=== PATIENT | female | born 1950 | race Caucasian/White ===

== ENCOUNTER 2020-12-13 06:53 | Day surgery (SDC) | payer MEDICARE, BC, OTHER, SELFPAY ==
[2020-12-13 07:08] VITALS: BP 140/95; PULSE 90; RESP 20; TEMP 36.5; O2SAT 96
[2020-12-13] MEDS: Tropicam./Phenyleph. (1/2.5%) 5 ML BTL OD ×3 (07:26→07:38)
--- NOTE | 2020-12-13 07:28 | ANES.PREOP_ITS ---
Anesthesia Assessment and Plan Anesthesia History Personal History: No History of Anesthesia Complications Family History: No Family History of Anesthesia Complications Exercise Tolerance Exercise Tolerance: Metabolic Equivalents>4 Pertinent Negatives Pertinent Negatives: No Symptoms of GERD ( O meds. Has hiatal hernia. Sleeps w 3 pillowsa) Cardiac & Pulmonary Exam Cardiac Exam: Normal S1/S2 Heart Sounds Pulmonary Exam: Clear Bilateral Breath Sounds Airway Exam Known Difficult Airway: No Mallampati Class: 2 Mouth Opening: Normal (> 3cm) Thyromental Distance: Greater than 3 cm Neck Range of Motion: Full ROM Neck Circumference: Normal Teeth Condition: Normal Dentition ASA Classification ASA Score: ASA 2 ASA Emergency: No NPO Status NPO Status: NPO Clears >2 hours, Solids >8 hours Status Status: Not Per Patient Anesthesia Plan Anesthesia Technique: MAC Anesthesia Airway Planned: Natural Airway Monitors Used: Standard Monitors General Info Date of Service This is a Shared Provider Document. All providers who document on this will be required to sign document once completed. Please Communicate with Team Date Performed: 12/13/20 Height: 5 ft 5 in Weight: 90.2 kg Body Mass Index (BMI): 33.0 Surgical Procedure: Operation Date: 12/13/20 08:40 Proposed Procedures Side Surgeon p Cataract Extraction with IOL Implant Right Mike Rendon MD Vital Signs and Lab Results Vital Signs Most Recent Vital Signs in EMR: Most Recent Vital Signs Temp Pulse Resp BP Pulse Ox 36.5 C 90 20 140/95 H 96 12/13/20 07:08 12/13/20 07:08 12/13/20 07:08 12/13/20 07:08 12/13/20 07:08 Point of Care Results Nursing Point of Care Results: No Data to Display Lab Results Blood Type / Crossmatch: No Data to Display Complete Blood Count: No Data to Display Complete Metabolic Panel: No Data to Display Liver Function Panel: No Data to Display Coagulation Panel: No Data to Display Cardiac Panel: No Data to Display Arterial Blood Gas: No Data to Display Venous Blood Gas: No Data to Display Pancreas Panel: No Data to Display Thyroid Panel: No Data to Display Infectious Disease: No Data to Display Blood Cultures: Blood Culture Toxicology Panel: No Data to Display Panel: No Data to Display PFSH Medical History Sherry's thyroiditis Left anterior fascicular block Right bundle branch block Surgical History H/O parathyroidectomy History of appendectomy History of surgery vaginal sling Social History Smoking/Tobacco Use Status: Never Smoking risk assessment performed?: Yes Alcohol Intake: never Substance use type: does not use Do you feel safe at home: Yes Do you feel safe in your relationship?: Yes Meds Allergies and Home Medications Allergies Allergy/AdvReac Type Severity Reaction Status Date / Time levofloxacin [From Levaquin] AdvReac Intermediate Achilles Verified 12/13/20 07:14 pain Current Visit Medication Generic Name Dose Route Start Last Admin Trade Name Freq PRN Reason Stop Dose Admin Acetaminophen 1,000 mg 12/13/20 06:00 Acetaminophen 500 Mg Tab PO Q4H PRN PRN Miscellaneous Medication 0 ml 12/13/20 06:00 Prednisolone 1%, Moxifloxacin 0.5%, Nepafenac 0.1% 5ml Btl OD DIRECTED [facility] Miscellaneous Medication 0 ml 12/13/20 06:00 12/13/20 07:38 Tropicam./Phenyleph. (1/2.5%) 5 Ml Btl OD 1 drp DIRECTED [facility] Administration Tetracaine HCl 0 ml 12/13/20 06:00 Tetracaine 0.5% 4 Ml Btl OD DIRECTED [facility] Home Medication Medication Instructions Recorded Lactobacillus rhamnosus GG 5 cap PO DAILY 12/10/20 ascorbic acid (vitamin C) [Vitamin 500 mg PO DAILY 12/10/20 C] biotin 1,000 mcg PO DAILY 12/10/20 cholecalciferol (vitamin D3) 1,000 mcg PO DAILY 12/10/20 [Vitamin D3] ccjt-wroid-dpi-hyal-ben borate 1 tab PO DAILY 12/13/20 [Move Free Plus [facility]]
[2020-12-13 07:49] VITALS: BMI 33.0
[2020-12-13] MEDS: Balanced Salt Soln.-PLUS 500 ML BAG (08:16)
[2020-12-13] MEDS: Tetracaine 0.5% 4 ML BTL OD (08:16)
[2020-12-13] MEDS: Duovisc Viscoelastic System EACH 1 EACH (08:17)
[2020-12-13] MEDS: Lidocaine 2% Jelly 6 ML SYR (08:18)
[2020-12-13] MEDS: Lidocaine 1% Pres-Free 5 ML VIAL (08:18)
[2020-12-13] MEDS: Povidone-Iodine Ophth 30 ML BTL (08:20)
[2020-12-13 08:30] VITALS: BP 136/89; PULSE 86; RESP 16; TEMP 36.2; O2SAT 93
--- NOTE | 2020-12-13 08:30 | W.PM.DSUDISC ---
Discharge Plan Disposition Patient Disposition: HOME Condition: Good Discharge Details Attending Provider: Mike Rendon Primary Care Provider: Zeina Jarrett Home Meds and New Rx's Prescriptions: No Action ascorbic acid (vitamin C) [Vitamin C] 500 mg Tablet 500 mg PO DAILY RF: 0 Lactobacillus rhamnosus GG 10 billion cell Capsule 5 cap PO DAILY RF: 0 cholecalciferol (vitamin D3) [Vitamin D3] 25 mcg (1,000 unit) Capsule 1,000 mcg PO DAILY RF: 0 biotin 1,000 mcg Tablet,Chewable 1,000 mcg PO DAILY RF: 0 Move Free Plus MSM 500 mg-66.7 mg- 500 mg-1.1 mg Tablet 1 tab PO DAILY RF: 0 Discharge Instructions Stand Alone Forms: Post-op Topical Cataract, Shelbie Buitrago (DSU) Discharge Orders Discharge Orders: Discharge Order (Routine); Ordered 12/13/20 Ordered By: Mike Rendon DS: Diagnosis Discharge Diagnosis (1) Nuclear sclerotic cataract of right eye: Status: Resolved (2) Cortical cataract of right eye: Status: Resolved
--- NOTE | 2020-12-13 08:31 | ROE_ITS ---
Date of service: 12/13/20 Time of Service: 08:31 Operative Note Operative Note DATE OF PROCEDURE: 12/13/20 PRE-OP DIAGNOSIS: Nuclear/cortical cataract, right eye High myopia POST-OP DIAGNOSIS: same PROCEDURE: Cataract extraction using phacoemulsification with intraocular lens implant, right eye SURGEON: Mike Rendon ANESTHESIA TYPE: Local By Surgeon and MAC Refer to Anesthesia Record ESTIMATED BLOOD LOSS: 0 PATHOLOGY: none sent COMPLICATIONS: None Patient was transported to: same day Patient's condition: stable Implants: Lonny and Lonny Vision / [employer] Tecnis [id number] intraocular lens Indications: Progressive decreased vision due to cataract, right eye Procedure Description: CATARACT SURGERY OPERATIVE REPORT PREOPERATIVE DIAGNOSIS: Nuclear/cortical cataract, right eye High myopia POSTOPERATIVE DIAGNOSIS: Same OPERATION: Cataract extraction using phacoemulsification with posterior chamber intraocular lens implant, right eye. IOL: IOL Safety Person/Model: J&J Vision / THEO Tecnis ZCB00 IOL Power: + 12.0 diopters IOL Serial Number: [id number] Optic Diameter: 6.0mm Haptic/Overall Diameter: 13.0mm PHACO INFO: Silvano [employer] Plus Select / [employer] Vision System with OZil and Active Fluidics Cumulative Dispersed Energy (CDE): 8.78 seconds SURGEON: Mike Rendon MD, PUSHPA ANESTHESIA: Monitored Anesthesia Care (MAC), with local sub-tenon's anesthetic infiltration COMPLICATIONS: None SPECIMENS: None INDICATIONS FOR PROCEDURE: The patient is a 70-year-old lady with history of high myopia who has developed a symptomatic nuclear and cortical cataract in the right eye. The option of cataract surgery was offered to the patient and she wished to proceed. PROCEDURE: The correct surgical eye was identified and marked as the right eye and the pupil was dilated in the preoperative area using mydriatics and cycloplegics. The dilated pupil size was 6.0 mm. Oral sedation was administered in the form of an Imprimis MKO Melt (midazolam 3mg/ketamine 25mg/ondansetron 2mg). The patient was brought to the operating room where cardiopulmonary monitoring was instituted and surgical time-out was performed, confirming the correct operative eye and IOL power. Topical anesthesia was administered and ophthalmic povidone-iodine 5% was instilled into the conjunctival fornices. Lidocaine gel was applied to the cornea and the shalini-ocular area was prepped with Betadine 10% solution and drap ed in the usual sterile fashion for intraocular surgery, including an aperture drape. A Tegaderm transparent film dressing was cut in half and used to cover the lashes and lid margins. Care was taken to sequester the lashes and lid margins under the Tegaderm dressing. A lid speculum was placed between the lids of the operative eye and the Dashawn-Miah operating microscope was maneuvered into position. Dio scissors were then used to make a conjunctival buttonhole approximately 6mm posterior to the limbus in the inferonasal quadrant. Blunt dissection was carried out to expose bare sclera, and a blunt-tipped sub-tenon?s anesthesia cannula was introduced and passed posteriorly along the globe where non- preserved plain lidocaine was injected into posterior sub-Tenon?s space. A sideport knife was used to make a paracentesis port inferiortemporally. Intraocular phenylephrine/lidocaine was injected into the anterior chamber. The anterior chamber was then filled with viscoelastic. A 2.4mm keratome knife was used to create a half-thickness groove at the limbus and then to construct a three-plane near-clear corneal tunnel extending 2.0mm into clear cornea in the superiortemporal position. . A flap was raised on the anterior capsule and capsulorhexis forceps were used to complete a continuous curvilinear capsulorhexis of 5.5 mm. The anterior chamber was noted to be quite deep with a thin anterior capsule. Balanced salt solution was then used to perform cortical cleaving hydrodissection and nuclear hydrodelineation until the lens could be freely rotated within the capsular bag. The lens nucleus was then disassembled and removed within the capsular bag and iris plane using phacoemulsification. The pupil constricted to 3 mm during phacoemulsification. Visualization was challenging. Instillation of additional lidocaine/phenylephrine resulted in redilation to about 5 mm. Residual cortical material was removed using the I/A handpiece. The posterior capsule was carefully polished to remove as much residual lens epithelial cells as safely possible. The capsular bag was then inflated and the anterior chamber deepened with viscoelastic. The lens implant described above was inserted into the capsular bag using the THEO Willard Injector. A Kuglen hook was used to dial the IOL into position. Residual viscoelastic was then removed first from posterior to the IOL, then from the anterior chamber using the I/A handpiece. The lens implant was noted to center nicely within the capsular bag. The incisions were stromally hydrated, and the anterior chamber was reformed using BSS. Then 0.5cc of moxifloxacin 1.0mg/ml were injected into the capsular bag and anterior chamber. The incisions were checked with a Weck spear and found to be secure. Several drops of ophthalmic povidone-iodine 5% were then applied to the eye followed by two drops of Imprimis combination prednisolone/moxifloxacin/nepafenac solution. The drapes were removed and a clear plastic protective eye shield was placed over the eye. The patient was then returned to Same Day Surgery in stable condition.
--- NOTE | 2020-12-13 08:43 | W.ANESPOSTOP ---
Postoperative Evaluation Date, Time and Location Date Performed: 12/13/20 Time Performed: 08:44 Patient Location: Day Surgery Unit Vital Signs Most Recent Imported Vital Signs: Most Recent Vital Signs Temp Pulse Resp BP Pulse Ox 36.2 C L 86 16 136/89 93 12/13/20 08:40 12/13/20 08:40 12/13/20 08:40 12/13/20 08:40 12/13/20 08:40 Assessment Mental Status: Awake (Alert & Oriented to Patient Baseline) Airway and Respiratory Function: Patent airway with normal (patient baseline) respiratory exam Cardiovascular Function: Hemodynamically Stable Hydration Status: Adequately Hydrated Nausea & Vomiting: No Nausea or Vomiting Pain: Pt. Denies Any Pain Peripheral Nerve Block: Patient did not receive a nerve block
[2020-12-13 09:00] VITALS: BP 129/87; PULSE 95; RESP 16; TEMP 36.5; O2SAT 96
== END 2020-12-13 09:20 | disposition home or self-care (01) ==
PROVIDERS: PCP Family Medicine; Visit Provider Ophthalmology
PROC: (CPT 66984; principal; 2020-12-13 08:30)
DX: H25.11 Age-related nuclear cataract, right eye (principal); H25.011 Cortical age-related cataract, right eye
CPT/HCPCS: 66984; V2632

== ENCOUNTER 2020-12-31 09:39 | Day surgery (SDC) | payer MEDICARE, BC, OTHER, SELFPAY ==
[2020-12-31 10:07] VITALS: BP 137/99; PULSE 92; RESP 20; TEMP 36.4; O2SAT 93
--- NOTE | 2020-12-31 10:52 | W.ANESPRE ---
General Info Date of Service Date Performed: 12/31/20 Height: 5 ft 5 in Weight: 90.5 kg Body Mass Index (BMI): 33.2 Surgical Procedure: Operation Date: 12/31/20 12:40 Proposed Procedures Side Surgeon p Cataract Extraction with IOL Implant Left Mike Rendon MD Meds Allergies and Home Medications Allergies Allergy/AdvReac Type Severity Reaction Status Date / Time levofloxacin [From Levaquin] AdvReac Intermediate Achilles Verified 12/31/20 10:19 pain Home Medication Medication Instructions Recorded Lactobacillus rhamnosus GG 5 cap PO DAILY 12/10/20 ascorbic acid (vitamin C) [Vitamin 500 mg PO DAILY 12/10/20 C] biotin 1,000 mcg PO DAILY 12/10/20 cholecalciferol (vitamin D3) 1,000 mcg PO DAILY 12/10/20 [Vitamin D3] uxip-bsdqj-mbu-hyal-ben borate 1 tab PO DAILY 12/13/20 [Move Free Plus MSM] Current Visit Medications: Current Medications Generic Name Dose Route Start Last Admin Trade Name Freq PRN Reason Stop Dose Admin Acetaminophen 1,000 mg 12/31/20 06:00 Acetaminophen 500 Mg Tab PO Q4H PRN PRN Miscellaneous Medication 0 ml 12/31/20 06:00 Prednisolone 1%, Moxifloxacin 0.5%, Nepafenac 0.1% 5ml Btl OS DIRECTED [facility] Miscellaneous Medication 0 ml 12/31/20 06:00 12/31/20 10:25 Tropicam./Phenyleph. (1/2.5%) 10 Ml Btl OS 1 drp DIRECTED [facility] Administration Tetracaine HCl 0 ml 12/31/20 06:00 Tetracaine 0.5% 4 Ml Btl OS DIRECTED [facility] PFSH Active Problems Active Problems: Problem Status Onset Code Nuclear sclerotic cataract of right eye H25.11 Cortical cataract of right eye H26.9 Medical History Medical History Sherry's thyroiditis Left anterior fascicular block Right bundle branch block Surgical History Surgical History H/O parathyroidectomy History of appendectomy History of surgery vaginal sling Tobacco Smoking/Tobacco Use Status: Never Alcohol Alcohol Intake: never Substance Use Substance use type: does not use Vital Signs and Lab Results Vital Signs Most Recent Vital Signs in EMR: Most Recent Vital Signs Temp Pulse Resp BP Pulse Ox 36.4 C L 92 H 20 137/99 H 93 12/31/20 10:07 12/31/20 10:07 12/31/20 10:07 12/31/20 10:07 12/31/20 10:07 Lab Results Blood Type / Crossmatch: No Data to Display Complete Blood Count: No Data to Display Complete Metabolic Panel: No Data to Display Liver Function Panel: No Data to Display Coagulation Panel: No Data to Display Cardiac Panel: No Data to Display Arterial Blood Gas: No Data to Display Venous Blood Gas: No Data to Display Pancreas Panel: No Data to Display Thyroid Panel: No Data to Display Infectious Disease: No Data to Display Blood Cultures: No Data to Display Toxicology Panel: No Data to Display Anesthesia Assessment and Plan Anesthesia History Personal History: No History of Anesthesia Complications Family History: No Family History of Anesthesia Complications Exercise Tolerance Exercise Tolerance: Metabolic Equivalents>4 Pertinent Negatives Pertinent Negatives: No Symptoms of GERD Cardiac & Pulmonary Exam Cardiac Exam: Normal S1/S2 Heart Sounds Pulmonary Exam: Clear Bilateral Breath Sounds Airway Exam Known Difficult Airway: No Mallampati Class: 2 Mouth Opening: Normal (> 3cm) Thyromental Distance: Greater than 3 cm Neck Range of Motion: Full ROM Neck Circumference: Normal Teeth Condition: Normal Dentition ASA Classification ASA Score: ASA 2 Emergency Case?: No NPO Status NPO Status: NPO Clears >2 hours, Solids >8 hours Anesthesia Plan Resuscitation Status: Full Code Anesthesia Technique: MAC Anesthesia Airway Planned: Natural Airway Monitors Used: Standard Monitors
[2020-12-31 10:57] VITALS: BMI 33.2
[2020-12-31] MEDS: Povidone-Iodine Ophth 30 ML BTL (11:27)
[2020-12-31] MEDS: Lidocaine 2% Jelly 6 ML SYR (11:29)
[2020-12-31] MEDS: Lidocaine 1% Pres-Free 5 ML VIAL (11:30)
[2020-12-31] MEDS: Duovisc Viscoelastic System EACH 1 EACH (11:30)
[2020-12-31] MEDS: Tetracaine 0.5% 4 ML BTL OS (11:31)
[2020-12-31] MEDS: Balanced Salt Soln.-PLUS 500 ML BAG (11:31)
[2020-12-31 11:45] VITALS: BP 129/86; PULSE 86; RESP 16; TEMP 36.5; O2SAT 94
--- NOTE | 2020-12-31 11:47 | W.PM.DSUDISC ---
Discharge Plan Disposition Patient Disposition: HOME Condition: Good Discharge Details Attending Provider: Mike Rendon Primary Care Provider: Zeina Jarrett Home Meds and New Rx's Prescriptions: No Action ascorbic acid (vitamin C) [Vitamin C] 500 mg Tablet 500 mg PO DAILY RF: 0 Lactobacillus rhamnosus GG 10 billion cell Capsule 5 cap PO DAILY RF: 0 cholecalciferol (vitamin D3) [Vitamin D3] 25 mcg (1,000 unit) Capsule 1,000 mcg PO DAILY RF: 0 biotin 1,000 mcg Tablet,Chewable 1,000 mcg PO DAILY RF: 0 Move Free Plus MSM 500 mg-66.7 mg- 500 mg-1.1 mg Tablet 1 tab PO DAILY RF: 0 Discharge Instructions Stand Alone Forms: Post-op Block Cataract, Post-op Topical Cataract, Press Ganey (DSU) Discharge Orders Discharge Orders: Discharge Order (Routine); Ordered 12/31/20 Ordered By: Mike Rendon DS: Diagnosis Discharge Diagnosis (1) Cortical cataract of left eye: Status: Resolved (2) Nuclear sclerotic cataract of left eye: Status: Resolved
--- NOTE | 2020-12-31 11:49 | ROE_ITS ---
Date of service: 12/31/20 Time of Service: 11:49 Operative Note Operative Note DATE OF PROCEDURE: 12/31/20 PRE-OP DIAGNOSIS: Nuclear/cortical cataract, left eye POST-OP DIAGNOSIS: same PROCEDURE: Cataract extraction using phacoemulsification with intraocular lens implant, left eye SURGEON: Mike Rendon ANESTHESIA TYPE: Local By Surgeon and MAC Refer to Anesthesia Record PATHOLOGY: none sent COMPLICATIONS: None Patient was transported to: same day Patient's condition: stable Implants: Lonny and Lonny Vision / [employer] Tecnis [id number] Indications: Progressive decreased vision due to cataract, left eye Procedure Description: CATARACT SURGERY OPERATIVE REPORT PREOPERATIVE DIAGNOSIS: Nuclear/cortical cataract, left eye POSTOPERATIVE DIAGNOSIS: Same OPERATION: Cataract extraction using phacoemulsification with posterior chamber intraocular lens implant, left eye. IOL: IOL Forest Firefighter/Model: J&J Vision / THEO Tecnis ZCB00 IOL Power: + +12.0 diopters IOL Serial Number: [id number] Optic Diameter: 6.0mm Haptic/Overall Diameter: 13.0mm PHACO INFO: Silvano [employer] Vision System with OZil and Active Fluidics Cumulative Dispersed Energy (CDE): 6.08 seconds SURGEON: Mike Rendon MD, PUSHPA ANESTHESIA: Monitored Anesthesia Care (MAC), with local sub-tenon's anesthetic infiltration COMPLICATIONS: None SPECIMENS: None INDICATIONS FOR PROCEDURE: The patient is a 70-year-old lady with history of diminished visual acuity in both eyes secondary to development of bilateral nuclear and cortical cataract. She has already undergone cataract surgery in the right eye and is doing well postoperatively. She now presents for cataract surgery in the left eye. PROCEDURE: The correct surgical eye was identified and marked as the left eye and the pupil was dilated in the preoperative area using mydriatics and cycloplegics. The dilated pupil size was 7.0 mm. Oral sedation was administered in the form of an Imprimis MKO Melt (midazolam 3mg/ketamine 25mg/ondansetron 2mg). The patient was brought to the operating room where cardiopulmonary monitoring was instituted and surgical time-out was performed, confirming the correct operative eye and IOL power. Topical anesthesia was administered and ophthalmic povidone-iodine 5% was instilled into the conjunctival fornices. Lidocaine gel was applied to the cornea and the shalini-ocular area was prepped with Betadine 10% solution and draped in the usual sterile fashion for intraocular surgery, including an aperture drape. A Tegaderm transparent film dressing was cut in half and used to cover the lashes and lid margins. Care was taken to sequester the lashes and lid margins under the Tegaderm dressing. A lid speculum was placed between the lids of the operative eye and the Dashawn-Miah operating microscope was maneuvered into position. Dio scissors were then used to make a conjunctival buttonhole approximately 6mm posterior to the limbus in the inferonasal quadrant. Blunt dissection was carried out to expose bare sclera, and a blunt-tipped sub-tenon?s anesthesia cannula was introduced and passed posteriorly along the globe where non- preserved plain lidocaine was injected into posterior sub-Tenon?s space. A sideport knife was used to make a paracentesis port superior/superiortemporally. Intraocular phenylephrine/lidocaine was injected into the anterior chamber. The anterior chamber was then filled with viscoelastic. A 2.4mm keratome knife was used to create a half-thickness groove at the limbus and then to construct a three-plane near-clear corneal tunnel extending 2.0mm into clear cornea in the temporal position. . A flap was raised on the anterior capsule and capsulorhexis forceps were used to complete a continuous curvilinear capsulorhexis of 5.0 mm. Balanced salt solution was then used to perform cortical cleaving hydrodissection and nuclear hydrodelineation until the lens could be freely rotated within the capsular bag. The lens nucleus was then disassembled and removed within the capsular bag and iris plane using phacoemulsification. Residual cortical material was removed using the 45-degree angled silicone I/A tip with 0.3mm port. The posterior capsule was carefully polished to remove as much residual lens epithelial cells as safely possible. The capsular bag was then inflated and the anterior chamber deepened with viscoelastic. The lens implant described above was inserted into the capsular bag using the THEO Zimmerman Injector. A Kuglen hook was used to dial the IOL into position. Residual viscoelastic was then removed first from posterior to the IOL, then from the anterior chamber using the I/A handpiece. The lens implant was noted to center nicely within the capsular bag. The incisions were stromally hydrated, and the anterior chamber was reformed using BSS. Then 0.5cc of moxifloxacin 1.0mg/ml were injected into the capsular bag and anterior chamber. The incisions were checked with a Weck spear and found to be secure. Several drops of ophthalmic povidone-iodine 5% were then applied to the eye followed by two drops of Imprimis combination prednisolone/moxifloxacin/nepafenac solution. The drapes were removed and a clear plastic protective eye shield was placed over the eye. The patient was then returned to Same Day Surgery in stable condition.
--- NOTE | 2020-12-31 11:54 | W.ANESPOSTOP ---
Postoperative Evaluation Date, Time and Location Date Performed: 12/31/20 Time Performed: 11:54 Patient Location: Day Surgery Unit Vital Signs Most Recent Imported Vital Signs: Most Recent Vital Signs Temp Pulse Resp BP Pulse Ox 36.5 C 86 16 129/86 94 12/31/20 11:45 12/31/20 11:45 12/31/20 11:45 12/31/20 11:45 12/31/20 11:45 Pain Score Most Recent Pain Score: Most Recent Pain Score Pain Level 0 12/31/20 10:07 Assessment Mental Status: Awake (Alert & Oriented to Patient Baseline) Airway and Respiratory Function: Patent airway with normal (patient baseline) respiratory exam Cardiovascular Function: Hemodynamically Stable Hydration Status: Adequately Hydrated Nausea & Vomiting: No Nausea or Vomiting Pain: Pt. Denies Any Pain Peripheral Nerve Block: Patient did not receive a nerve block
[2020-12-31 12:11] VITALS: BP 134/82; PULSE 92; RESP 16; TEMP 36.6; O2SAT 96
== END 2020-12-31 12:15 | disposition home or self-care (01) ==
PROVIDERS: PCP Family Medicine; Visit Provider Ophthalmology
PROC: (CPT 66984; principal; 2020-12-31 12:30)
DX: H25.12 Age-related nuclear cataract, left eye (principal)
CPT/HCPCS: 66984; V2632

== ENCOUNTER 2025-07-02 14:12 | Outpatient (REF) | payer MEDICARE, OTHER, SELFPAY ==
--- NOTE | 2025-07-02 13:30 | ORMUBX_PTH ---
PATIENT: Kalpana Wang LOC: [facility] U#:[id number] AGE/SX: 74/F ROOM: RE07/02/[address]: Oneida Cortes : 1950 BED: DIS: 07/02/2025 SPEC #: [id number] RECD: 07/02/25 17:44 STATUS: NACNY REQ #: [id number] NIKA: 07/02/25 13:[address]: Oneida Cortes DEPT: Surgical Specimen RECD BY: Alicia Banerjee ENTERED: 07/02/25 17:45 SP TYPE: ORMUBX OTHR DR: Zeina Jarrett Tissues: 1 - MUCOSA, NOS Procedures: GROSS AND MICRO LEVEL 4 Comments: [id number]
== END 2025-07-02 14:13 | disposition home or self-care (01) ==
LOC: LBN 14:12
PROVIDERS: PCP Family Medicine; Visit Provider Registered Nurse Maternal Newborn
DX: K13.70 Unspecified lesions of oral mucosa (principal)
CPT/HCPCS: 88305